=== PATIENT | female | born 1980 | race Asian ===

== ENCOUNTER 2017-01-02 08:33 | Outpatient (CLI) | payer OTHER ==
[2017-01-02 09:07] LABS: POTASSIUM 3.8 mmol/L (3.6-5.2); SODIUM 136 mmol/L (136-145)
== END 2017-01-02 19:03 | disposition home or self-care (01) ==
LOC: LABW 08:33
PROVIDERS: Internal Medicine Nephrology
DX: E78.4 Other hyperlipidemia (principal); E10.65 Type 1 diabetes mellitus with hyperglycemia; I10 Essential (primary) hypertension
CPT/HCPCS: 36415; 80053; 80061

== ENCOUNTER 2017-02-06 16:59 | Outpatient (CLI) | payer OTHER ==
[2017-02-06 18:31] LABS: POTASSIUM 3.9 mmol/L (3.6-5.2)
== END 2017-02-06 19:45 | disposition home or self-care (01) ==
LOC: INF 16:59
PROVIDERS: Family Medicine
DX: O20.0 Threatened abortion (principal)
CPT/HCPCS: 80053; 96361; 96374; 96375; J2175; J2550

== ENCOUNTER 2017-03-20 12:59 | Outpatient (CLI) | payer OTHER | END 2017-03-20 15:00 | disposition home or self-care (01) | LOC: MAMMO 12:59 | DX: N60.19 Diffuse cystic mastopathy of unspecified breast (principal) | CPT/HCPCS: G0204-TC ==

== ENCOUNTER 2017-06-17 08:19 | Outpatient (CLI) | payer OTHER ==
[2017-06-17 08:44] LABS: PLATELET COUNT 254 K/uL (152-353)
[2017-06-17 09:25] LABS: SODIUM 133 mmol/L (136-145)
== END 2017-06-17 18:57 | disposition home or self-care (01) ==
LOC: LABW 08:19
PROVIDERS: Internal Medicine Nephrology
DX: E10.65 Type 1 diabetes mellitus with hyperglycemia (principal); I10 Essential (primary) hypertension; Z68.41 Body mass index [BMI] 40.0-44.9, adult
CPT/HCPCS: 36415; 80053; 80061; 84436; 84443; 84681; 85027; 86337; 86341

== ENCOUNTER 2018-03-19 08:32 | Outpatient (CLI) | payer OTHER ==
[2018-03-19 08:53] LABS: PLATELET COUNT 295 K/uL (152-353)
[2018-03-19 09:28] LABS: POTASSIUM 3.9 mmol/L (3.6-5.2)
== END 2018-03-19 23:20 | disposition home or self-care (01) ==
LOC: LABW 08:32
PROVIDERS: Internal Medicine Nephrology
DX: E10.65 Type 1 diabetes mellitus with hyperglycemia (principal); I10 Essential (primary) hypertension; E78.4 Other hyperlipidemia
CPT/HCPCS: 36415; 80053; 80061; 81000; 82570; 83519; 84155; 84443; 84681; 85027; 86341

== ENCOUNTER 2018-11-22 08:49 | Outpatient (CLI) | payer OTHER ==
[2018-11-22 09:17] LABS: PLATELET COUNT 293 K/uL (152-353)
[2018-11-22 09:29] LABS: POTASSIUM 3.9 mmol/L (3.6-5.2)
== END 2018-11-22 23:42 | disposition home or self-care (01) ==
LOC: LABW 08:49
PROVIDERS: Physician Assistant
DX: I10 Essential (primary) hypertension (principal); N18.2 Chronic kidney disease, stage 2 (mild); N92.6 Irregular menstruation, unspecified; E10.65 Type 1 diabetes mellitus with hyperglycemia; E55.9 Vitamin D deficiency, unspecified
CPT/HCPCS: 80053; 81000; 84155; 85027

== ENCOUNTER 2019-02-26 06:38 | Outpatient (CLI) | payer OTHER ==
[2019-02-26 07:01] LABS: PLATELET COUNT 299 K/uL (152-353)
== END 2019-02-26 23:03 | disposition home or self-care (01) ==
LOC: LABW 06:38
PROVIDERS: Physician Assistant
DX: E11.40 Type 2 diabetes mellitus with diabetic neuropathy, unspecified (principal); E78.49 Other hyperlipidemia; E66.8 Other obesity; F32.89 Other specified depressive episodes; E55.9 Vitamin D deficiency, unspecified
CPT/HCPCS: 36415; 80061; 85027

== ENCOUNTER 2019-06-16 08:32 | Outpatient (CLI) | payer OTHER ==
[2019-06-16 09:55] LABS: POTASSIUM 4.4 mmol/L (3.6-5.2)
== END 2019-06-16 20:08 | disposition home or self-care (01) ==
LOC: LABW 08:32
PROVIDERS: Physician Assistant
DX: I12.9 Hypertensive chronic kidney disease with stage 1 through stage 4 chronic kidney disease, or unspecified chronic kidney disease (principal); N18.2 Chronic kidney disease, stage 2 (mild); E78.49 Other hyperlipidemia; E10.65 Type 1 diabetes mellitus with hyperglycemia; E55.9 Vitamin D deficiency, unspecified
CPT/HCPCS: 36415; 80053; 81000; 82570; 83036; 84155; 84443

== ENCOUNTER 2023-04-19 07:41 | Outpatient (CLI) | payer OTHER ==
[2023-04-19 07:56] LABS: PLATELET COUNT 302 K/uL (152-353)
== END 2023-04-19 19:12 | disposition home or self-care (01) ==
LOC: LABW 07:41
PROVIDERS: ATTEND Specialist
DX: R13.19 Other dysphagia (principal)
CPT/HCPCS: 36415; 80053; 85027; 93005